=== PATIENT | female | born 1975 | race Caucasian/White ===

== ENCOUNTER 2018-08-26 18:02 | Inpatient (IN) | payer OTHER ==
[~2018-08-26] VITALS: Ht 175.3 cm; Wt 115.2 kg
--- NOTE | 2018-08-26 19:18 | NUR ---
PRE ASSESSMENT BP 141/88 P 96 R 16 O2sat 96% A 43 year old female in intake. She is A/O X 4 with a steady gait. She states she was sober 22 months and got kidney stones about 2.5 weeks ago. She was hospitalized and given Dilaudid. She was taking Dilaudid and Hendricks as prescribed. She states she stopped Dilaudid one week ago and has been tapering off Hendricks for the last 4 days. She states she last used 5mg Hendricks today at 2pm. Will endorse to oncoming table games shift manager.
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
[2018-08-26] MEDS ORDERED: MAG HYDROX/AL HYDROX/SIMETH 30 ML LIQUID UDC PO PRN (22:45)
[2018-08-26] MEDS ORDERED: ONDANSETRON 4 MG/2 ML VIAL IM PRN (22:45)
[2018-08-26] MEDS ORDERED: diphenhydrAMINE 50 MG CAPSULE PO PRN (22:45)
[2018-08-26] MEDS ORDERED: DICYCLOMINE HCL 20 MG TABLET PO PRN (22:45)
[2018-08-26] MEDS ORDERED: IBUPROFEN 600 MG TABLET PO PRN (22:45)
[2018-08-26] MEDS ORDERED: MIRALAX 17 GM POWD.PACK PO PRN (22:45)
[2018-08-26] MEDS ORDERED: HYDROXYZINE PAMOATE 25 MG CAPSULE PO PRN (22:45)
[2018-08-26] MEDS ORDERED: BUPRENORPHINE HCL 2 MG TAB.SUBL SL PRN (22:45)
[2018-08-26] MEDS ORDERED: ONDANSETRON ODT 4 MG TAB.RAPDIS SL PRN (22:45)
[2018-08-26] MEDS ORDERED: MAGNESIUM HYDROXIDE 30 ML LIQUID UDC PO PRN (22:45)
[2018-08-26] MEDS ORDERED: METHOCARBAMOL 750 MG TABLET PO PRN (22:45)
[2018-08-26] MEDS ORDERED: LOPERAMIDE HCL 2 MG CAPSULE PO PRN ×2 (22:45)
[2018-08-26 23:05] LABS: *URINE HCG, QUAL NEGATIVE (NEGATIVE)
[2018-08-26 23:26] LABS: *AMPHETAMINE, URINE NEGATIVE (NEGATIVE); *BARBITURATE, URINE NEGATIVE (NEGATIVE); *CANNABINOID, URINE NEGATIVE (NEGATIVE); *COCCAINE, URINE NEGATIVE (NEGATIVE); *OPIATE, URINE POSITIVE (NEGATIVE); *PHENCYCLIDINE SCREEN,URINE NEGATIVE (NEGATIVE)
[2018-08-26] MEDS: CLONIDINE HCL 0.1 MG TABLET PO PRN (23:35)
[2018-08-26] MEDS: GABAPENTIN 100 MG CAPSULE PO PRN (23:35)
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
[2018-08-27] VITALS: BP 136/89
[2018-08-27] MEDS ORDERED: CLINDAMYCIN HCL 300 MG CAPSULE PO ONE
--- NOTE | 2018-08-27 00:35 | NUR ---
PRN CLONIDINE & GABAPENTIN REASSESSMENT Patient reports some improvement in back pain. Patient reports feeling less anxious and states, "I think the clonidine with the gabapentin will help me fall asleep." PRN medications noted to be effective. Safety measures in place, side rails up x2, bed locked in low position, call light within reach. Will continue to monitor.
[2018-08-27 06:45] LABS: BASOPHILS # (AUTO) 0.1 K/uL (0.0-8.0); BASOPHILS % (AUTO) 1.5 % (0.0-2.0); EOSINOPHILS # (AUTO) 0.1 K/uL (0.0-0.7); EOSINOPHILS % (AUTO) 1.2 % (0.0-7.0); HEMATOCRIT 38.4 % (31.2-41.9); LYMPHOCYTES # (AUTO) 1.6 K/uL (20.0-40.0); LYMPHOCYTES % (AUTO) 18.4 % (20.5-51.5); MEAN CORPUSCULAR HEMOGLOBIN 28.6 uug (24.7-32.8); MEAN CORPUSCULAR HGB CONC 34 g/dL (32.3-35.6); MEAN CORPUSCULAR VOLUME 84.9 fL (75.5-95.3); MONOCYTES # (AUTO) 0.8 K/uL (2.0-10.0); NEUTROPHILS # (AUTO) 6.1 K/uL (1.8-8.9); NEUTROPHILS % (AUTO) 69.9 % (38.5-71.5); PLATELET COUNT (AUTO) 204 K/uL (179-408); RED BLOOD CELL COUNT(AUTO) 4.53 MIL/uL (3.63-4.92); WHITE BLOOD COUNT (AUTO) 8.8 K/uL (3.8-11.8)
[2018-08-27] MEDS: ACETAMINOPHEN 325 MG TABLET PO PRN ×2 (06:47→13:31)
[2018-08-27] MEDS: CLONIDINE HCL 0.1 MG TABLET PO PRN ×3 (06:47→23:25)
--- NOTE | 2018-08-27 06:47 | NUR ---
COWS 18, PRNS GIVEN Patient reports extreme anxiety, diaphoresis, headache, chills and sweats, muscle cramps and aches. Patient states she had "diarrhea for me because I'm usually constipated." COWS score is 18 at this time. PRN Clonidine, Robaxin, and acetaminophen given PO. Safety measures in place, call light within reach. Will monitor for effectiveness.
--- NOTE | 2018-08-27 06:56 | NUR ---
PRN ZIA Patient reports "I suddenly feel nauseous. I think I drank all that water too fast." PRN Angelaan given SL for nausea, no emesis at this time. Safety measures in place, side rails up x2, bed locked in low position, call light within reach. Will monitor for effectiveness.
[2018-08-27 07:01] LABS: ETHANOL < 3 MG/DL (0-0)
[2018-08-27 07:06] LABS: ALANINE AMINOTRANSFERASE 20 U/L (14-59); ALKALINE PHOSPHATASE 55 U/L (50-136); AMYLASE 32 U/L (25-115); ASPARTATE AMINOTRANSFERASE 10 U/L (15-37); BILIRUBIN,TOTAL 0.4 mg/dL (0.2-1.0); CARBON DIOXIDE 26 mmol/L (21-32); CHLORIDE 106 mmol/L (98-107); CREATININE 0.7 mg/dL (0.6-1.3); GLUCOSE 94 mg/dL (74-106); LIPASE 118 U/L (73-393); MAGNESIUM 1.8 mg/dL (1.8-2.4); POTASSIUM 3.8 mmol/L (3.5-5.1); TOTAL PROTEIN, SERUM 6.1 g/dL (6.4-8.2); UREA NITROGEN, BLOOD 15 mg/dL (7-18)
[2018-08-27 07:08] LABS: THYROID STIMULATING HORMONE 0.999 mIU/mL (0.358-3.740)
--- NOTE | 2018-08-27 07:26 | NUR ---
Reassess Zofran 4mg SL for nausea and episode of emesis x 1, client reports slight relief from nausea and no more emesis at this time. Call light within reach.
--- NOTE | 2018-08-27 07:47 | NUR ---
START OF SHIFT & Reassess PRN Tylenol 650mg, Robaxin 750mg, Clonidine 0.1mg Endorse rcvd from ongoing nurse, client is sitting at the edge of bed, working on her computer, she is o/o x 4, she presents with depresses mood and flat affect. Client reports goosebump, dilated pupils, cold/chills, generalized body aches, myalgia, CARDENAS 6/10, restlessness, anxiety, and fatigue. Client reports no relief from withdrawals symptoms with PRN medications. Client declined Motrin and Vistaril at this time she stated, "I can't take Motrin because of my PE and no Vistaril because of my prolonged QT history." PRN medications administered and noted per protocol. Last COWS 18 @ 0630. Encourage client to attend group therapy to learn skills to maintain sober. IPCD at bedside. Call light within reach. Will continue to monitor.
--- NOTE | 2018-08-27 07:50 | NUR ---
END OF SHIFT Patient is a 43-year-old female admitted on 08/26/18 for opiate withdrawal. Patient is currently not on a taper, with PRN medications on hand for signs and symptoms of withdrawal. Patients last COWS score was 12. Patient received PRN clonidine and PRN gabapentin, both noted to be effective. Patient was also given one dose of Clindamycin 300mg PO for a reported sinus infection. Patient slept for 6 hours, total intake of 1,180mL, void x2, stool x1. When patient woke up at 0635 she complained of increased withdrawal symptoms, COWS at that time was 18. PRN zofran SL given for nausea, PRN clonidine, PRN Robaxin, and PRN acetaminophen given PO. Patient is on fall precautions, with a recent fall two days ago related to syncopal episode. Patient denies history of seizure activity. Safety measures in place, side rails up x2, bed locked in low position, call light within reach. Will endorse to day shift.
[2018-08-27 08:01] VITALS: BP 135/80
--- NOTE | 2018-08-27 08:01 | NUR ---
COWS 10 Client is in her room, reading, she presents with depressed mood, flushed facial skin, yawning, and irritability. Client reports muscle aches, goosebump, chills, sweating, nausea, abdominal cramps, cravings, and difficulty concentrating. Non-pharmacologic measures rendered. Encourage client to attend group therapy to learn skills to maintain sober. Call light within reach.
[2018-08-27] MEDS ORDERED: MACI10TA PO (08:35)
[2018-08-27] MEDS ORDERED: GABA-532 PO (08:35)
[2018-08-27] MEDS ORDERED: LEVO150T PO (08:35)
[2018-08-27] MEDS ORDERED: POLY17PO4 GT (08:36)
[2018-08-27] MEDS ORDERED: PROP20TA7 PO (08:36)
[2018-08-27] MEDS ORDERED: ONDA4TAB8 PO (08:36)
[2018-08-27] MEDS ORDERED: CYAN10009 PO (08:36)
[2018-08-27] MEDS ORDERED: CHOL10005 PO (08:36)
[2018-08-27] MEDS ORDERED: DILT120T14 PO (08:36)
[2018-08-27] MEDS ORDERED: MULT1TAB73 PO (08:36)
[2018-08-27] MEDS ORDERED: TUBERCULIN,PURIF.PROT.DERIV. 5 TU/0.1 ML TEST ID ONE (09:00)
[2018-08-27] MEDS: GABAPENTIN 100 MG CAPSULE PO PRN (09:19)
--- NOTE | 2018-08-27 09:19 | NUR ---
PRN Gabapentin 200mg PO for neuropathic pain on lower extremities 03/16. Call light within reach.
--- NOTE | 2018-08-27 10:19 | NUR ---
Reassess PRN Gabapentin 200mg, client reports feeling better, her pain level on lower extremities is 2/10, but tolerable. Call light within reach.
[2018-08-27] MEDS ORDERED: BUPRENORPHINE HCL 2 MG TAB.SUBL SL PRN (12:30)
[2018-08-27] MEDS ORDERED: GABAPENTIN 100 MG CAPSULE PO PRN (12:45)
[2018-08-27 12:55] VITALS: BP 116/71
[2018-08-27] MEDS: CLINDAMYCIN HCL 300 MG CAPSULE PO SCH ×2 (13:31→21:19)
--- NOTE | 2018-08-27 13:31 | NUR ---
COWS 10 & PRN Clonidine 0.1mg PO, Tylenol 325mg PO for agitation, chills, and pain on lower extremities 5/10. Client is in room, she reports anxiety, irritability, muscle aches, goosebump, chills, sweating, and yawning. Encourage client to attend group therapy to learn skills to maintain sober. Call light within reach.
--- NOTE | 2018-08-27 14:31 | NUR ---
Reassess PRN Clonidine 0.1mg, Tylenol 325mg, client reports slight relief from agitation, chills, and pain on lower extremities 2/10, but tolerable. Call light within reach.
[2018-08-27 16:55] VITALS: BP 117/77
[2018-08-27] MEDS: LEVOTHYROXINE SODIUM 150 MCG TABLET PO SCH (17:10)
--- NOTE | 2018-08-27 17:10 | NUR ---
COWS 8 Client presents with anxiety, agitation, chill/flushing, goosebump, and yawning. Non-pharmacologic measures rendered. Will continue to monitor. Call light within reach.
--- NOTE | 2018-08-27 19:08 | NUR ---
END OF SHIFT Endorse client to incoming nurse. Client is in room, a/o x 4, client continues to present with anxiety, agitation, chill/flushing, goosebump, and yawning. Last COWS 8 @ 1600. PRN medications administered and noted per protocol. Client is schedule for discharge tomorrow am. Client was admitted for observation of opioid withdrawal. Client is compliant with 1/3 group therapy. Adequate PO fluid intake 2625mL, void x 4, stool x 2. Client consumes 100% of meals. call light within reach.
--- NOTE | 2018-08-27 19:15 | NUR ---
START OF SHIFT Patient is a 43-year-old female admitted on 08/26/18 for symptoms of opiate withdrawal. Patient is not on a scheduled taper, with PRN medications available for signs and symptoms of withdrawal. Patient is scheduled for discharge tomorrow. Per endorsement, last COWS score was 8. Patient received PRN gabapentin, acetaminophen, Robaxin, and clonidine today; all noted to be effective. Upon assessment, patient appears anxious, observed in bed working on homework assignments on her laptop. Patient complains of chills and intermittent goosebumps, but states Im doing better than I was when I first got here. Several beverage bottles noted on patients bedside table. Patient is on fall precautions with no history of seizure. Safety measures in place, side rails up x2, bed locked in low position, call light within reach. Will continue to monitor.
[2018-08-27 20:00] VITALS: BP 128/71
--- NOTE | 2018-08-27 20:00 | NUR ---
COWS 9 Patient reports "mild goosebumps and chills" and reports anxiety and some muscle aches. Current COWS is 9. SN to administer meds as ordered.
--- NOTE | 2018-08-27 20:26 | NUR ---
PRN GABAPENTIN Patient reports lower back pain 4/10 on pain scale. PRN gabapentin 100mg given PO. Safety measures in place, side rails up x2, bed locked in low position, call light within reach. Will monitor for effectiveness.
[2018-08-27] MEDS ORDERED: DILTIAZEM HCL CD 180 MG CAP.SR.24H PO SCH (21:00)
--- NOTE | 2018-08-27 21:26 | NUR ---
PRN GABAPENTIN REASSESSMENT Patient reports some relief of lower back pain; PRN gabapentin noted to be effective. Safety measures in place, call light within reach. Will continue to monitor.
--- NOTE | 2018-08-27 23:25 | NUR ---
PRN CLONIDINE Patient reports anxiety and restlessness related to withdrawal and discharge tomorrow. PRN Clonidine 0.1mg given PO. Safety measures in place, side rails up x2, bed locked in low position, call light within reach. Will monitor for effectiveness.
[2018-08-28] VITALS: BP 125/80
--- NOTE | 2018-08-28 | NUR ---
COWS 8 Patient is reports anxiety, mild muscle aches, intermittent chills, and goosebumps. Current COWS 8.
--- NOTE | 2018-08-28 00:25 | NUR ---
PRN CLONIDINE REASSESSMENT Patient reports decreased anxiety and restlessness and is reading school material in preparation for the upcoming week. PRN clonidine noted to be effective. Safety measures in place, side rails up x2, bed locked in low position, call light within reach. Will continue to monitor.
--- NOTE | 2018-08-28 04:00 | NUR ---
VITALS REFUSED, COWS DEFERRED Vitals refused at this time, COWS deferred due to patient sleeping. COWS assessment to be completed while patient is awake. Respirations even and unlabored, safety measures in place. Side rails up x2, bed locked in low position, call light within reach. Will continue to monitor.
--- NOTE | 2018-08-28 06:30 | NUR ---
COWS 7 Patient is awake in bed reading material on her laptop. Symptoms reported include anxiety, mild chills, and muscle aches. COWS score 7.
[2018-08-28] MEDS: CLINDAMYCIN HCL 300 MG CAPSULE PO SCH (06:49)
--- NOTE | 2018-08-28 07:20 | NUR ---
END OF SHIFT Patient is a 43-year-old female admitted on 08/26/18 for symptoms of opiate withdrawal. Patient was not placed on a taper, only PRN medications available for signs and symptoms of withdrawal. Patient is scheduled for discharge today. Patients last COWS score was 7. Patient received PRN gabapentin and PRN clonidine; both noted to be effective. Patient refused her 2100 dose of Cardizem stating, I dont want to take it since I took Clonidine. Patient slept for 5 hours, total intake of 1,210mL, void x4, stool x1. Patient is on fall precautions with no history of seizure. Safety measures in place, side rails up x2, bed locked in low position, call light within reach. Will endorse to day shift.
--- NOTE | 2018-08-28 07:20 | NUR ---
Start Of Shift Patient is a 43 yr old female who was admitted to [facility] on 08/26/18 for a medically supervised withdrawal from Opiates ( [place]), she has not been placed on any taper only PRN medications, Patient will be discharged this AM to home. PRN Gabapentin and Clonidine was given on PM shift, she slept for 4 hours and last COWS was 7 @ 0630. Continue to follow MD plan for DC.
[2018-08-28 08:00] VITALS: BP 122/80
--- NOTE | 2018-08-28 08:00 | NUR ---
Start of Shift Note: Upon start of shift, pt was awake and ambulating the hallways. Per night baker nurse, last COWS was 7 at 0630. Pt slept for 3 hours. During assessment, pt is AOx4. Respirations even and unlabored. No acute distress noted. Pt currently on PRN medications and is awaiting medical clearance to be discharged today. Bed in lowest position. Side rails up x2. Call light functioning and within reach. All needs attended and met. Will continue to monitor.
--- NOTE | 2018-08-28 08:00 | NUR ---
COWS 5 Pt noted with mild aches, mild anxiety, larger than normal pupil size. COWS 5
[2018-08-28] MEDS: LEVOTHYROXINE SODIUM 150 MCG TABLET PO SCH (09:48)
[2018-08-28] MEDS ORDERED: CLON0.1T14 PO (11:24)
--- NOTE | 2018-08-28 12:40 | NUR ---
Discharge Note: Pt medically cleared for discharge by Dr. Malik. Pt in stable condition. All belongings and valuables returned to pt. Pt left the unit at 1240. Pt discharged to home.
[2018-08-28 15:09] LABS: HEPATITIS B SURFACE AG Negative (Negative)
== END 2018-08-28 12:40 | disposition home or self-care (01) | DRG 895 ==
LOC: SRC 18:02
PROVIDERS: ADMIT Internal Medicine; ATTEND Family Medicine Addiction Medicine
PROC: HZ2ZZZZ Detoxification Services for Substance Abuse Treatment (ICD-10-PCS; principal; 2018-08-26)
PROC: HZ41ZZZ Group Counseling for Substance Abuse Treatment, Behavioral (ICD-10-PCS; 2018-08-27)
DX: F11.23 Opioid dependence with withdrawal (principal); D69.3 Immune thrombocytopenic purpura; I45.81 Long QT syndrome; E03.9 Hypothyroidism, unspecified; I27.20 Pulmonary hypertension, unspecified; Z86.718 Personal history of other venous thrombosis and embolism; Z81.3 Family history of other psychoactive substance abuse and dependence; Z86.711 Personal history of pulmonary embolism; F10.21 Alcohol dependence, in remission; Z81.1 Family history of alcohol abuse and dependence; I48.91 Unspecified atrial fibrillation; J32.9 Chronic sinusitis, unspecified; Z87.828 Personal history of other (healed) physical injury and trauma; F41.9 Anxiety disorder, unspecified; K59.00 Constipation, unspecified; N20.0 Calculus of kidney; E66.9 Obesity, unspecified; Z68.37 Body mass index [BMI] 37.0-37.9, adult
CPT/HCPCS: 36415; 70030-TC; 80307; 80361; 83690; 83735; 84443; 84703; 85025; 86592; 86705; 86803; 87340; 87806; A4663; G0480; Q0162